=== PATIENT | male | born 1945 | race Caucasian/White ===

== ENCOUNTER → 2017-05-13 | Outpatient (CLI) | payer MEDICARE, OTHER ==
[~2017-05-13] MED LIST: ALEVE 220MG220 MG PO; APRESOLINE 25MG25 MG PO; ASPIRIN 32325 MG/TAB PO; ASPIRIN E.C. 8181 MG PO; CIPRO 500MG TA500 MG PO; COLACE 100100 MG/CAP PO; DESENEX21 TP; DITROPAN XL10 MG PO; DULCOLAX S10 MG/SUPP RC; EFFEXOR 75M75 MG/TAB PO; EFFEXOR XR75 MG PO; FERROUS SU325 MG/TAB PO; FLEET MINE1 BOT/133 RC; FOLIC ACID 40400 MCG PO; GLUCOPHAGE XR500 M1 PO; GLUCOPHAGE500 MG/TAB PO; GLUCOTROL 5M5 MG/TAB PO; GLUCOTROL10 MG PO; GLYBURIDE5 MG PO; HYZAAR 12.5 MG-1 TAB PO; HYZAAR 25 MG-101 TAB PO; HYZAAR 50-12.1 UDTAB PO; INSULIN N (N100 U/ML SQ; LEADER CLE17 GM/Dose PO; LIDODERM 5% PATC1 EA TP; LYRICA 100MG C100 M1 PO; LYRICA 150MG C150 MG PO; MASON NATURAL2000 IU PO; METOPROLOL25 MG PO; MICRONASE5 MG PO; MILK OF MA400 MG/5 M PO; MOBIC15 MG PO; NEURONTIN300 MG/CAP PO; NEURONTIN600 MG/TAB PO; NITROSTAT0.4 MG/TAB SL; NORCO 325 MG-51 TAB PO; NORCO 325 MG-7.1 TAB PO; NORVASC 10MG10 MG PO; NOVLOG SQ; NOVOLIN N100 U/ML SQ; ROXICODONE 55 MG/TAB PO; SENNA-LAX8.6 MG PO; SENOKOT8.6 MG PO; TYLENOL 325MG325 MG PO; TYLENOL 500MG500 MG PO; VICTOZA6 MG/ML SC; VITAMIN C500 MG PO; XARELTO10 MG PO; ZOCOR 10MG10 MG PO; ZOCOR20 MG PO; [UNRECOGNIZED DRUG - CODE] PO
== END ==
LOC: MHCPAIN 13:13
DX: G89.29 Other chronic pain (principal); M47.27 Other spondylosis with radiculopathy, lumbosacral region; M53.3 Sacrococcygeal disorders, not elsewhere classified; Z79.82 Long term (current) use of aspirin
CPT/HCPCS: G0463

== ENCOUNTER → 2017-06-12 | Outpatient (CLI) | payer MEDICARE, OTHER ==
[~2017-06-12] MED LIST changes: -APRESOLINE 25MG25 MG PO; -ASPIRIN E.C. 8181 MG PO; -DESENEX21 TP; -DITROPAN XL10 MG PO; -DULCOLAX S10 MG/SUPP RC; -EFFEXOR 75M75 MG/TAB PO; +EFFEXOR XR37.5 MG/CA PO; -FERROUS SU325 MG/TAB PO; -FLEET MINE1 BOT/133 RC; -FOLIC ACID 40400 MCG PO; -GLUCOPHAGE XR500 M1 PO; -GLUCOTROL 5M5 MG/TAB PO; -GLUCOTROL10 MG PO; -HYZAAR 12.5 MG-1 TAB PO; -HYZAAR 50-12.1 UDTAB PO; -INSULIN N (N100 U/ML SQ; -LEADER CLE17 GM/Dose PO; -LIDODERM 5% PATC1 EA TP; -LYRICA 150MG C150 MG PO; -MASON NATURAL2000 IU PO; -MOBIC15 MG PO; -NEURONTIN300 MG/CAP PO; -NEURONTIN600 MG/TAB PO; -NITROSTAT0.4 MG/TAB SL; -NORVASC 10MG10 MG PO; -NOVLOG SQ; -NOVOLIN N100 U/ML SQ; -SENNA-LAX8.6 MG PO; -TYLENOL 325MG325 MG PO; -VITAMIN C500 MG PO; -XARELTO10 MG PO; -[UNRECOGNIZED DRUG - CODE] PO
== END ==
LOC: MHCPAIN 07:45
DX: M47.27 Other spondylosis with radiculopathy, lumbosacral region (principal); M48.02 Spinal stenosis, cervical region
CPT/HCPCS: J1100; Q9967

== ENCOUNTER → 2017-06-24 | Outpatient (CLI) | payer MEDICARE, OTHER | LOC: MHCPAIN 09:18 | DX: G89.29 Other chronic pain (principal); M47.27 Other spondylosis with radiculopathy, lumbosacral region; M53.3 Sacrococcygeal disorders, not elsewhere classified; M25.552 Pain in left hip; Z79.82 Long term (current) use of aspirin | CPT/HCPCS: G0463 ==

== ENCOUNTER → 2017-06-25 | Outpatient (CLI) | payer MEDICARE, OTHER | LOC: COL.RAD 14:53 | DX: M16.12 Unilateral primary osteoarthritis, left hip (principal) ==

== ENCOUNTER 2017-10-15 15:15 | Outpatient (RCR) | payer MEDICARE, OTHER | END 2017-10-22 14:55 | disposition home or self-care (01) | LOC: WSPT 15:15 | DX: M54.42 Lumbago with sciatica, left side (principal) | CPT/HCPCS: G8978-GP; G8979-GP ==

== ENCOUNTER 2018-04-20 07:18 | Inpatient (IN) | payer MEDICARE, OTHER ==
[~2018-04-20] VITALS: Ht 180.3 cm; Wt 142.8 kg
[~2018-04-20 07:18] MED LIST changes: +EFFEXOR 75M75 MG/TAB PO; -EFFEXOR XR37.5 MG/CA PO
[2018-04-20] MEDS ORDERED: GLUCOPHAGE XR500 M1 PO (07:30)
[2018-04-20 08:00] LABS: COLLECTION METHOD CLEAN CATCH
[2018-04-20 08:03] LABS: HEMATOCRIT 42.4 % (42.0-52.0); HEMOGLOBIN 13.7 g/dl (13.5-18.0); MEAN CELL VOLUME 85 fl (80.0-100.0); MEAN CORPUSCULAR HEMOGLOBIN 28 pg (27.0-31.0); MEAN CORPUSCULAR HGB CONC 32 g/dl (33.0-37.0); PLATELET COUNT 154 K/mm3 (130-400); RED BLOOD COUNT 4.99 M/mm3 (4.20-5.60); REDCELL DISTRIBUTION WIDTH-CV 16.6 % (11.5-14.5)
[2018-04-20 08:08] LABS: PH 6 (5-8); SQUAMOUS EPITHELIAL 0-2 /hpf; URINE APPEARANCE Clear; URINE BACTERIA None Seen /hpf; URINE BILIRUBIN Negative (NEGATIVE); URINE BLOOD 3+ (NEGATIVE); URINE COLOR Yellow; URINE GLUCOSE Negative (NEGATIVE); URINE KETONE Negative (NEGATIVE); URINE LEUKOCYTE ESTERASE Negative (NEGATIVE); URINE NITRATE Negative (NEGATIVE); URINE PROTEIN(semi-quant) 2+ (NEGATIVE); URINE RBC 20-50 /hpf; URINE UROBILINOGEN Negative (NEGATIVE)
[2018-04-20] MEDS ORDERED: LYRICA 150MG C150 MG PO (08:12)
[2018-04-20] MEDS ORDERED: MOBIC15 MG PO (08:12)
[2018-04-20] MEDS ORDERED: HYZAAR 50-12.1 UDTAB PO (08:14)
[2018-04-20] MEDS ORDERED: NEURONTIN600 MG/TAB PO (08:15)
[2018-04-20] MEDS ORDERED: NORCO 325 MG-51 TAB PO (08:16)
[2018-04-20] MEDS ORDERED: NITROSTAT0.4 MG/TAB SL (08:17)
[2018-04-20] MEDS ORDERED: HYZAAR 12.5 MG-1 TAB PO (08:18)
[2018-04-20 08:20] LABS: PARTIAL THROMBOPLASTIN TIME 33.9 SECONDS (26.0-37.0)
[2018-04-20 08:21] LABS: ALBUMIN 3.6 gm/dL (3.5-5.0); BILIRUBIN,TOTAL 0.5 mg/dL (0.0-1.0); CALCIUM 8.8 mg/dL (8.4-10.2); CREATININE, serum 1.11 mg/dL (0.66-1.25); POTASSIUM 4.6 mmol/L (3.4-5.0); TOTAL PROTEIN 6.7 gm/dL (6.4-8.2)
[2018-04-20] MEDS ORDERED: GLUCOTROL10 MG PO (08:21)
[2018-04-20 08:26] LABS: BAND 6 % (0-10); EOSINOPHIL 3 % (0-4); LYMPHOCYTE 16 % (20.0-51.0); METAMYELOCYTE 1 % (0-0); NEUTROPHILS 61 % (42.0-75.2); PLATELET ESTIMATE NORMAL (NORMAL)
[2018-04-20 08:27] LABS: HYPOCHROMIA 1+
[2018-04-20] MEDS ORDERED: ASPIRIN E.C. 8181 MG PO (12:26)
[2018-04-20] MEDS ORDERED: DITROPAN XL10 MG PO (12:29)
[2018-04-20 12:47] VITALS: BP 175/75; PULSE 78; TEMP 98.1
[2018-04-20 15:34] VITALS: BP 166/54; PULSE 74; TEMP 97.9
[2018-04-20 19:53] VITALS: BP 145/67; PULSE 73; TEMP 97.6
[2018-04-20 23:49] VITALS: BP 176/69; PULSE 67; TEMP 97.6
[2018-04-21 03:03] VITALS: BP 185/74; PULSE 66; TEMP 97.6
[2018-04-21 08:13] VITALS: BP 216/90; PULSE 76; TEMP 98.3
[2018-04-21 09:26] VITALS: BP 182/62; PULSE 68
[2018-04-21 11:18] VITALS: BP 164/103; PULSE 70; TEMP 97.7
[2018-04-21] MEDS ORDERED: EFFEXOR 75M75 MG/TAB PO (11:45)
[2018-04-21 15:49] VITALS: BP 149/99; PULSE 74; TEMP 97.8
[2018-04-21 20:27] VITALS: BP 136/60; PULSE 69; TEMP 97.8
[2018-04-22 01:06] VITALS: BP 120/49; PULSE 65; TEMP 97.4
[2018-04-22 07:59] VITALS: BP 175/56; PULSE 77; TEMP 97.9
[2018-04-22 11:08] VITALS: BP 160/58; PULSE 84; TEMP 97.8
[2018-04-22 15:22] VITALS: BP 136/58; PULSE 69; TEMP 98.1
[2018-04-22 17:51] LABS: BASO % 0.7 % (0.0-2.0); EOS # 0.2 (0.0-0.7); GRAN # 3.5 (1.4-6.5); GRAN % 61.6 % (42.2-75.2); HEMATOCRIT 42.8 % (42.0-52.0); HEMOGLOBIN 13.6 g/dl (13.5-18.0); LYMPH # 0.9 (1.2-3.4); LYMPH % 15.8 % (20.0-51.0); MEAN CELL VOLUME 86 fl (80.0-100.0); MEAN CORPUSCULAR HEMOGLOBIN 27 pg (27.0-31.0); MEAN CORPUSCULAR HGB CONC 32 g/dl (33.0-37.0); MEAN PLATELET VOLUME 9.7 fl (7.4-10.4); MONO # 0.9 (0.1-0.6); PLATELET COUNT 165 K/mm3 (130-400); RED BLOOD COUNT 4.99 M/mm3 (4.20-5.60); REDCELL DISTRIBUTION WIDTH-CV 16.5 % (11.5-14.5)
[2018-04-22 18:07] LABS: CALCIUM 8.2 mg/dL (8.4-10.2); CREATININE, serum 1.64 mg/dL (0.66-1.25); MAGNESIUM 2.3 mg/dL (1.6-2.3); POTASSIUM 4.4 mmol/L (3.4-5.0)
[2018-04-22 20:17] VITALS: BP 105/44; PULSE 75; TEMP 98.7
[2018-04-23] VITALS (8 sets, daily range): BP systolic 98–186; BP diastolic 43–86; PULSE 61–82; TEMP 97.5–98.4
[2018-04-23 06:29] LABS: BASO % 0.3 % (0.0-2.0); EOS % 0.3 % (0-4.0); GRAN # 5.2 (1.4-6.5); GRAN % 81.8 % (42.2-75.2); HEMATOCRIT 40.8 % (42.0-52.0); LYMPH # 0.5 (1.2-3.4); LYMPH % 8.2 % (20.0-51.0); MEAN CELL VOLUME 85 fl (80.0-100.0); MEAN CORPUSCULAR HEMOGLOBIN 27 pg (27.0-31.0); MEAN CORPUSCULAR HGB CONC 32 g/dl (33.0-37.0); MEAN PLATELET VOLUME 9.8 fl (7.4-10.4); MONO # 0.5 (0.1-0.6); PLATELET COUNT 157 K/mm3 (130-400); RED BLOOD COUNT 4.82 M/mm3 (4.20-5.60); REDCELL DISTRIBUTION WIDTH-CV 15.9 % (11.5-14.5)
[2018-04-23 06:46] LABS: CALCIUM 8.2 mg/dL (8.4-10.2); CREATININE, serum 1.63 mg/dL (0.66-1.25); POTASSIUM 4.8 mmol/L (3.4-5.0)
[2018-04-24 03:32] VITALS: BP 103/88; PULSE 62; TEMP 98.1
[2018-04-24 06:27] LABS: HEMATOCRIT 41.7 % (42.0-52.0); HEMOGLOBIN 13.4 g/dl (13.5-18.0); MEAN CELL VOLUME 85 fl (80.0-100.0); MEAN CORPUSCULAR HEMOGLOBIN 27 pg (27.0-31.0); MEAN CORPUSCULAR HGB CONC 32 g/dl (33.0-37.0); MEAN PLATELET VOLUME 9.7 fl (7.4-10.4); PLATELET COUNT 160 K/mm3 (130-400); RED BLOOD COUNT 4.91 M/mm3 (4.20-5.60)
[2018-04-24 06:42] LABS: CALCIUM 8.2 mg/dL (8.4-10.2); CREATININE, serum 1.35 mg/dL (0.66-1.25); POTASSIUM 4.8 mmol/L (3.4-5.0)
[2018-04-24 06:51] LABS: BAND 14 % (0-10); LYMPHOCYTE 11 % (20.0-51.0); NEUTROPHILS 67 % (42.0-75.2)
[2018-04-24 06:52] LABS: PLATELET ESTIMATE NORMAL (NORMAL)
[2018-04-24 08:08] VITALS: BP 197/74; PULSE 68; TEMP 97.7
[2018-04-24 09:03] VITALS: BP 164/57
[2018-04-24 11:37] VITALS: BP 180/64; PULSE 71; TEMP 98.8
[2018-04-24 15:49] VITALS: BP 167/72; PULSE 68; TEMP 98
[2018-04-24 21:34] VITALS: BP 158/60; PULSE 73; TEMP 97.4
[2018-04-25 01:03] VITALS: BP 147/44; PULSE 63; TEMP 97.7
[2018-04-25 07:20] LABS: HEMATOCRIT 41.8 % (42.0-52.0); HEMOGLOBIN 13.4 g/dl (13.5-18.0); MEAN CELL VOLUME 86 fl (80.0-100.0); MEAN CORPUSCULAR HEMOGLOBIN 28 pg (27.0-31.0); MEAN CORPUSCULAR HGB CONC 32 g/dl (33.0-37.0); MEAN PLATELET VOLUME 9.5 fl (7.4-10.4); PLATELET COUNT 135 K/mm3 (130-400); RED BLOOD COUNT 4.88 M/mm3 (4.20-5.60); REDCELL DISTRIBUTION WIDTH-CV 16.2 % (11.5-14.5)
[2018-04-25 07:32] LABS: CALCIUM 8.2 mg/dL (8.4-10.2); CREATININE, serum 1.18 mg/dL (0.66-1.25); POTASSIUM 4.5 mmol/L (3.4-5.0)
[2018-04-25 08:37] VITALS: BP 115/41; PULSE 65; TEMP 98.4
[2018-04-25 08:41] VITALS: BP 179/51; PULSE 68; TEMP 95.5
[2018-04-25 09:34] LABS: ANISOCYTOSIS 1+; BAND 4 % (0-10); BASOPHIL 1 % (0-2); EOSINOPHIL 7 % (0-4); LYMPHOCYTE 12 % (20.0-51.0); NEUTROPHILS 66 % (42.0-75.2); PLATELET ESTIMATE NORMAL (NORMAL)
[2018-04-25 11:31] VITALS: BP 177/63; PULSE 78; TEMP 98
[2018-04-25 17:07] VITALS: BP 152/48; PULSE 70; TEMP 97.7
[2018-04-25 21:30] VITALS: BP 165/83; PULSE 71; TEMP 97.9
[2018-04-26 01:31] VITALS: BP 135/33; PULSE 67; TEMP 97.8
[2018-04-26 03:44] VITALS: BP 151/60; PULSE 68; TEMP 97.6
[2018-04-26 07:18] VITALS: BP 183/52; PULSE 77; TEMP 97.7
[2018-04-26] MEDS ORDERED: APRESOLINE 25MG25 MG PO (09:00)
[2018-04-26] MEDS ORDERED: NORVASC 10MG10 MG PO (09:01)
[2018-04-26] MEDS ORDERED: NORCO 325 MG-51 TAB PO (09:01)
[2018-04-26] MEDS ORDERED: LYRICA 150MG C150 MG PO (09:02)
[2018-04-26] MEDS ORDERED: NEURONTIN600 MG/TAB PO (09:02)
[2018-04-26] MEDS ORDERED: SENNA-LAX8.6 MG PO (09:03)
[2018-04-26] MEDS ORDERED: COLACE 100100 MG/CAP PO (09:03)
[2018-04-26] MEDS ORDERED: LEADER CLE17 GM/Dose PO (09:05)
[2018-04-26] MEDS ORDERED: LIDODERM 5% PATC1 EA TP (09:05)
[2018-04-26 11:20] VITALS: BP 183/52; PULSE 77; TEMP 97.7
[2018-04-26 12:31] VITALS: BP 117/88; PULSE 98; TEMP 98
== END 2018-04-26 13:25 | DRG 552 ==
LOC: COL.ER 07:18 → MEDICAL 09:52
PROVIDERS: Emergency Medicine; Physician Assistant
DX: M51.26 Other intervertebral disc displacement, lumbar region (principal); N17.9 Acute kidney failure, unspecified; Z68.41 Body mass index [BMI] 40.0-44.9, adult; M25.551 Pain in right hip; W18.30XA Fall on same level, unspecified, initial encounter; I12.9 Hypertensive chronic kidney disease with stage 1 through stage 4 chronic kidney disease, or unspecified chronic kidney disease; E11.22 Type 2 diabetes mellitus with diabetic chronic kidney disease; N18.3 Chronic kidney disease, stage 3 (moderate); I25.10 Atherosclerotic heart disease of native coronary artery without angina pectoris; E11.42 Type 2 diabetes mellitus with diabetic polyneuropathy; E66.01 Morbid (severe) obesity due to excess calories; Z95.1 Presence of aortocoronary bypass graft; Z95.5 Presence of coronary angioplasty implant and graft; Z85.46 Personal history of malignant neoplasm of prostate; G25.3 Myoclonus
CPT/HCPCS: 99232-AI; 99239; G0378; G8978-GP; G8979-GP; G8987-GO; G8988-GO; J0360; J1650; J1815; J2270; J3010; J7030; Q9967

== ENCOUNTER 2018-04-21 16:25 | Inpatient (IN) | payer MEDICARE, OTHER ==
[~2018-04-21] VITALS: Ht 180.3 cm; Wt 149.9 kg
[~2018-04-21 16:25] MED LIST changes: +ASPIRIN E.C. 8181 MG PO; +DITROPAN XL10 MG PO; +GLUCOPHAGE XR500 M1 PO; +GLUCOTROL10 MG PO; +HYZAAR 12.5 MG-1 TAB PO; +HYZAAR 50-12.1 UDTAB PO; +LYRICA 150MG C150 MG PO; +MOBIC15 MG PO; +NEURONTIN600 MG/TAB PO; +NITROSTAT0.4 MG/TAB SL
[2018-04-26] MEDS ORDERED: APRESOLINE 25MG25 MG PO (09:00)
[2018-04-26] MEDS ORDERED: NORCO 325 MG-51 TAB PO (09:01)
[2018-04-26] MEDS ORDERED: NORVASC 10MG10 MG PO (09:01)
[2018-04-26] MEDS ORDERED: LYRICA 150MG C150 MG PO (09:02)
[2018-04-26] MEDS ORDERED: NEURONTIN600 MG/TAB PO (09:02)
[2018-04-26] MEDS ORDERED: SENNA-LAX8.6 MG PO (09:03)
[2018-04-26] MEDS ORDERED: COLACE 100100 MG/CAP PO (09:03)
[2018-04-26] MEDS ORDERED: LEADER CLE17 GM/Dose PO (09:05)
[2018-04-26] MEDS ORDERED: LIDODERM 5% PATC1 EA TP (09:05)
[2018-06-23] VITALS (11 sets, daily range): BP systolic 98–162; BP diastolic 45–73; PULSE 61–80; TEMP 97.5–98.5
[2018-06-23] MEDS ORDERED: NEURONTIN600 MG/TAB PO (15:07)
[2018-06-23] MEDS ORDERED: MASON NATURAL2000 IU PO (15:09)
[2018-06-23] MEDS ORDERED: INSULIN N (N100 U/ML SQ (15:09)
[2018-06-23] MEDS ORDERED: [UNRECOGNIZED DRUG - CODE] PO (15:10)
[2018-06-23] MEDS ORDERED: VITAMIN C500 MG PO (15:11)
[2018-06-23] MEDS ORDERED: FERROUS SU325 MG/TAB PO (15:11)
[2018-06-23] MEDS ORDERED: FOLIC ACID 40400 MCG PO (15:11)
[2018-06-24] VITALS (9 sets, daily range): BP systolic 119–177; BP diastolic 45–137; PULSE 80–115; TEMP 96–98.6
[2018-06-24 07:28] LABS: HEMATOCRIT 41.8 % (42.0-52.0); HEMOGLOBIN 12.6 g/dl (13.5-18.0)
[2018-06-24 07:40] LABS: CALCIUM 7.7 mg/dL (8.4-10.2); CREATININE, serum 1.53 mg/dL (0.66-1.25); POTASSIUM 4.8 mmol/L (3.4-5.0)
[2018-06-25] VITALS (11 sets, daily range): BP systolic 139–210; BP diastolic 54–108; PULSE 94–123; TEMP 98–99.2
[2018-06-25 01:46] LABS: CREATININE, serum 1.5 mg/dL (0.66-1.25); FRACTIONAL EXCRETION OF NA+ 1.1 %
[2018-06-25 06:19] LABS: BASO # 0.1 (0.0-0.2); BASO % 0.6 % (0.0-2.0); EOS # 0.1 (0.0-0.7); EOS % 0.7 % (0-4.0); GRAN # 6.8 (1.4-6.5); GRAN % 77.8 % (42.2-75.2); HEMOGLOBIN 11.3 g/dl (13.5-18.0); LYMPH # 0.5 (1.2-3.4); MEAN CELL VOLUME 89 fl (80.0-100.0); MEAN CORPUSCULAR HEMOGLOBIN 28 pg (27.0-31.0); MEAN CORPUSCULAR HGB CONC 31 g/dl (33.0-37.0); MEAN PLATELET VOLUME 9.6 fl (7.4-10.4); MONO # 1.2 (0.1-0.6); MONO % 13.8 % (1.7-9.3); PLATELET COUNT 132 K/mm3 (130-400); RED BLOOD COUNT 4.07 M/mm3 (4.20-5.60); REDCELL DISTRIBUTION WIDTH-CV 15.7 % (11.5-14.5)
[2018-06-25 06:25] LABS: CALCIUM 7.7 mg/dL (8.4-10.2); CREATININE, serum 1.33 mg/dL (0.66-1.25); POTASSIUM 4.2 mmol/L (3.4-5.0)
[2018-06-25 06:27] LABS: HEMATOCRIT 36.2 % (42.0-52.0)
[2018-06-25 14:22] LABS: COLLECTION METHOD CLEAN CATCH
[2018-06-25 14:47] LABS: MUCOUS Present /lpf; PH 5 (5-8); SQUAMOUS EPITHELIAL None Seen /hpf; URINE APPEARANCE Clear; URINE BACTERIA None Seen /hpf; URINE BILIRUBIN Negative (NEGATIVE); URINE BLOOD 3+ (NEGATIVE); URINE COLOR Yellow; URINE GLUCOSE 1+ (NEGATIVE); URINE KETONE Negative (NEGATIVE); URINE LEUKOCYTE ESTERASE Negative (NEGATIVE); URINE NITRATE Negative (NEGATIVE); URINE PROTEIN(semi-quant) 1+ (NEGATIVE); URINE UROBILINOGEN Negative (NEGATIVE); URINE WBC 0-2 /hpf
[2018-06-26] VITALS: BP 156/72; PULSE 121; TEMP 98.3
[2018-06-26 04:00] VITALS: BP 178/76; PULSE 97; TEMP 99.4
[2018-06-26 05:44] LABS: BASO % 0.4 % (0.0-2.0); EOS % 0.5 % (0-4.0); GRAN # 6.5 (1.4-6.5); GRAN % 80.5 % (42.2-75.2); HEMOGLOBIN 10.3 g/dl (13.5-18.0); LYMPH # 0.6 (1.2-3.4); LYMPH % 7.2 % (20.0-51.0); MEAN CELL VOLUME 88 fl (80.0-100.0); MEAN CORPUSCULAR HEMOGLOBIN 28 pg (27.0-31.0); MEAN CORPUSCULAR HGB CONC 31 g/dl (33.0-37.0); MEAN PLATELET VOLUME 10.1 fl (7.4-10.4); MONO # 0.8 (0.1-0.6); MONO % 10.4 % (1.7-9.3); PLATELET COUNT 135 K/mm3 (130-400); RED BLOOD COUNT 3.72 M/mm3 (4.20-5.60); REDCELL DISTRIBUTION WIDTH-CV 15.4 % (11.5-14.5)
[2018-06-26 05:45] LABS: HEMATOCRIT 32.8 % (42.0-52.0)
[2018-06-26 05:56] LABS: CALCIUM 7.3 mg/dL (8.4-10.2); CREATININE, serum 1.21 mg/dL (0.66-1.25); POTASSIUM 4.4 mmol/L (3.4-5.0)
[2018-06-26 08:00] VITALS: BP 157/80; PULSE 80; TEMP 97.5
[2018-06-26 12:00] VITALS: BP 150/65; PULSE 90; TEMP 98
[2018-06-26 15:47] VITALS: BP 118/56; PULSE 71; TEMP 98.1
[2018-06-26 19:57] VITALS: BP 165/52; PULSE 88; TEMP 99.6
[2018-06-27 00:23] VITALS: BP 160/60; PULSE 84; TEMP 99.2
[2018-06-27 03:46] VITALS: BP 149/55; PULSE 77; TEMP 98.2
[2018-06-27 07:33] VITALS: BP 150/59; PULSE 76; TEMP 98.7
[2018-06-27 08:02] LABS: BASO % 0.4 % (0.0-2.0); EOS # 0.3 (0.0-0.7); EOS % 3.5 % (0-4.0); GRAN % 75.1 % (42.2-75.2); HEMOGLOBIN 10.2 g/dl (13.5-18.0); LYMPH # 0.7 (1.2-3.4); LYMPH % 8.3 % (20.0-51.0); MEAN CELL VOLUME 86 fl (80.0-100.0); MEAN CORPUSCULAR HEMOGLOBIN 28 pg (27.0-31.0); MEAN CORPUSCULAR HGB CONC 32 g/dl (33.0-37.0); MEAN PLATELET VOLUME 10.3 fl (7.4-10.4); MONO # 0.9 (0.1-0.6); MONO % 11.4 % (1.7-9.3); PLATELET COUNT 147 K/mm3 (130-400); RED BLOOD COUNT 3.66 M/mm3 (4.20-5.60); REDCELL DISTRIBUTION WIDTH-CV 15.3 % (11.5-14.5)
[2018-06-27 08:16] LABS: CALCIUM 7.5 mg/dL (8.4-10.2); CREATININE, serum 1.25 mg/dL (0.66-1.25); HEMATOCRIT 31.5 % (42.0-52.0); POTASSIUM 4.1 mmol/L (3.4-5.0)
[2018-06-27 12:25] VITALS: BP 132/39; PULSE 67; TEMP 97.5
[2018-06-27 17:23] VITALS: BP 135/51; PULSE 67; TEMP 97.5
[2018-06-27 19:10] VITALS: BP 107/69; BP 157/56; PULSE 75; TEMP 98.5
[2018-06-28 00:06] VITALS: BP 137/49; PULSE 71; TEMP 98.4
[2018-06-28 04:53] VITALS: BP 127/54; PULSE 68; TEMP 98.5
[2018-06-28 06:07] LABS: MEAN CELL VOLUME 87 fl (80.0-100.0); MEAN CORPUSCULAR HGB CONC 31 g/dl (33.0-37.0); MEAN PLATELET VOLUME 10.2 fl (7.4-10.4); PLATELET COUNT 155 K/mm3 (130-400); RED BLOOD COUNT 3.64 M/mm3 (4.20-5.60)
[2018-06-28 06:12] LABS: HEMATOCRIT 31.7 % (42.0-52.0); HEMOGLOBIN 9.9 g/dl (13.5-18.0); MEAN CORPUSCULAR HEMOGLOBIN 27 pg (27.0-31.0)
[2018-06-28 06:18] LABS: CALCIUM 7.8 mg/dL (8.4-10.2); CREATININE, serum 1.14 mg/dL (0.66-1.25); POTASSIUM 3.8 mmol/L (3.4-5.0)
[2018-06-28 06:33] LABS: BAND 16 % (0-10); EOSINOPHIL 2 % (0-4); LYMPHOCYTE 8 % (20.0-51.0); METAMYELOCYTE 2 % (0-0); NEUTROPHILS 67 % (42.0-75.2)
[2018-06-28 06:34] LABS: PLATELET ESTIMATE NORMAL (NORMAL)
[2018-06-28 08:43] VITALS: BP 150/52; PULSE 70; TEMP 98.5
[2018-06-28 12:57] VITALS: BP 140/49; PULSE 66; TEMP 98.4
[2018-06-28 16:31] VITALS: BP 128/49; PULSE 63; TEMP 98.1
[2018-06-28 20:59] VITALS: BP 154/65; PULSE 100; TEMP 98.4
[2018-06-29 04:35] VITALS: BP 153/56; PULSE 69; TEMP 96.9
[2018-06-29 08:06] VITALS: BP 165/62; PULSE 66; TEMP 97.7
[2018-06-29 12:14] VITALS: BP 137/57; PULSE 70; TEMP 98.3
[2018-06-29] MEDS ORDERED: LYRICA 150MG C150 MG PO (15:06)
[2018-06-29] MEDS ORDERED: NEURONTIN300 MG/CAP PO (15:06)
[2018-06-29 15:09] VITALS: BP 137/57; PULSE 70; TEMP 98.3
[2018-06-29] MEDS ORDERED: NORCO 325 MG-7.1 TAB PO (17:50)
[2018-06-29] MEDS ORDERED: ROXICODONE 55 MG/TAB PO (17:51)
== END 2018-06-29 16:00 | DRG 470 ==
LOC: SURG 06-23 08:52 → JCC 06-23 08:52 → SURG 06-24 23:03 → ICU 06-25 19:19 → SURG 06-26 15:45
PROVIDERS: Hospitalist; Orthopaedic Surgery; Physician Assistant
PROC: 0SRC0J9 Replacement of Right Knee Joint with Synthetic Substitute, Cemented, Open Approach (ICD-10-PCS; principal; 2018-06-23 13:00)
PROC: 0QS836Z Reposition Right Femoral Shaft with Intramedullary Internal Fixation Device, Percutaneous Approach (ICD-10-PCS; 2018-06-26)
DX: M17.11 Unilateral primary osteoarthritis, right knee (principal); S72.341A Displaced spiral fracture of shaft of right femur, initial encounter for closed fracture; Z68.42 Body mass index [BMI] 45.0-49.9, adult; N17.9 Acute kidney failure, unspecified; I97.191 Other postprocedural cardiac functional disturbances following other surgery; I47.1 Supraventricular tachycardia; E66.01 Morbid (severe) obesity due to excess calories; E11.42 Type 2 diabetes mellitus with diabetic polyneuropathy; Z79.4 Long term (current) use of insulin; Z85.46 Personal history of malignant neoplasm of prostate; I10 Essential (primary) hypertension; Z95.1 Presence of aortocoronary bypass graft; I25.10 Atherosclerotic heart disease of native coronary artery without angina pectoris; E78.5 Hyperlipidemia, unspecified; M48.00 Spinal stenosis, site unspecified; Z95.5 Presence of coronary angioplasty implant and graft; R27.8 Other lack of coordination; I49.3 Ventricular premature depolarization; D50.0 Iron deficiency anemia secondary to blood loss (chronic); W06.XXXA Fall from bed, initial encounter; G25.1 Drug-induced tremor; T42.6X5A Adverse effect of other antiepileptic and sedative-hypnotic drugs, initial encounter
CPT/HCPCS: 99222; 99231-AI; 99232-AI; A4314; A4315; A9284; C1713; C1776; J0171; J0690; J1170; J1815; J2250; J2270; J2370; J2405; J2704; J3010; J3370; J7030

== ENCOUNTER → 2018-06-12 | Outpatient (CLI) | payer MEDICARE, OTHER ==
[~2018-06-12] MED LIST changes: +APRESOLINE 25MG25 MG PO; +LEADER CLE17 GM/Dose PO; +LIDODERM 5% PATC1 EA TP; +NORVASC 10MG10 MG PO; +SENNA-LAX8.6 MG PO
[2018-06-12 12:11] LABS: HIV 1/2 Antibodies Non-Reactive; HIV-1p24 Antigen Non-Reactive
== END ==
LOC: COL.LAB 10:42
PROVIDERS: Orthopaedic Surgery
DX: Z01.812 Encounter for preprocedural laboratory examination (principal); M17.11 Unilateral primary osteoarthritis, right knee

== ENCOUNTER 2018-06-29 12:44 | Inpatient (IN) | payer MEDICARE, OTHER ==
[~2018-06-29] VITALS: Ht 177.8 cm; Wt 145.3 kg
[~2018-06-29 12:44] MED LIST changes: +FERROUS SU325 MG/TAB PO; +FOLIC ACID 40400 MCG PO; +INSULIN N (N100 U/ML SQ; +MASON NATURAL2000 IU PO; +VITAMIN C500 MG PO; +[UNRECOGNIZED DRUG - CODE] PO
[2018-06-29] MEDS ORDERED: LYRICA 150MG C150 MG PO (15:06)
[2018-06-29] MEDS ORDERED: NEURONTIN300 MG/CAP PO (15:06)
[2018-06-29] MEDS ORDERED: NORCO 325 MG-7.1 TAB PO (17:50)
[2018-06-29] MEDS ORDERED: ROXICODONE 55 MG/TAB PO (17:51)
[2018-06-29 19:11] VITALS: BP 160/53; PULSE 72; TEMP 98.2
[2018-06-30 06:26] VITALS: BP 159/57; PULSE 79; TEMP 98.1
[2018-06-30 17:55] VITALS: BP 131/46; PULSE 85; TEMP 97.6
[2018-07-01 03:57] VITALS: BP 142/51; PULSE 86; TEMP 97.5
[2018-07-01 17:54] VITALS: BP 143/45; PULSE 79; TEMP 97.5
[2018-07-02 04:36] VITALS: BP 154/54; PULSE 87; TEMP 97.9
[2018-07-02 18:01] VITALS: BP 156/40; PULSE 87; TEMP 98
[2018-07-03 04:00] VITALS: BP 162/55; PULSE 80; TEMP 98.7
[2018-07-03 06:18] LABS: HEMOGLOBIN 10.7 g/dl (13.5-18.0); MEAN CELL VOLUME 88 fl (80.0-100.0); MEAN CORPUSCULAR HEMOGLOBIN 27 pg (27.0-31.0); MEAN CORPUSCULAR HGB CONC 31 g/dl (33.0-37.0); MEAN PLATELET VOLUME 9.6 fl (7.4-10.4); PLATELET COUNT 332 K/mm3 (130-400); RED BLOOD COUNT 3.92 M/mm3 (4.20-5.60); REDCELL DISTRIBUTION WIDTH-CV 15.6 % (11.5-14.5)
[2018-07-03 06:19] LABS: HEMATOCRIT 34.5 % (42.0-52.0)
[2018-07-03 06:44] LABS: CALCIUM 8.9 mg/dL (8.4-10.2); CREATININE, serum 1.19 mg/dL (0.66-1.25); MAGNESIUM 2.2 mg/dL (1.6-2.3); POTASSIUM 4.4 mmol/L (3.4-5.0)
[2018-07-03 07:14] LABS: BASOPHIL 4 % (0-2); EOSINOPHIL 2 % (0-4); LYMPHOCYTE 14 % (20.0-51.0); MYELOCYTE 1 % (0-0); NEUTROPHILS 76 % (42.0-75.2); PLATELET ESTIMATE NORMAL (NORMAL)
[2018-07-03 07:15] LABS: ANISOCYTOSIS 1+; OVALOCYTES 1+; STOMATOCYTE 1+
[2018-07-03 16:50] LABS: COLLECTION METHOD CLEAN CATCH
[2018-07-03 17:03] LABS: MUCOUS Present /lpf; PH 8 (5-8); SQUAMOUS EPITHELIAL None Seen /hpf; URINE APPEARANCE Hazy; URINE BACTERIA Rare /hpf; URINE BILIRUBIN Negative (NEGATIVE); URINE BLOOD Negative (NEGATIVE); URINE COLOR Yellow; URINE GLUCOSE Negative (NEGATIVE); URINE KETONE Negative (NEGATIVE); URINE LEUKOCYTE ESTERASE 3+ (NEGATIVE); URINE NITRATE Positive (NEGATIVE); URINE PROTEIN(semi-quant) 1+ (NEGATIVE); URINE RBC 0-2 /hpf; URINE TRIPLE PHOSPHATE CRYSTAL Present /hpf; URINE UROBILINOGEN Negative (NEGATIVE)
[2018-07-03 17:59] VITALS: BP 167/54; PULSE 85; TEMP 98
[2018-07-04 04:27] VITALS: BP 134/50; PULSE 77; TEMP 97.2
[2018-07-04 16:32] VITALS: BP 155/57; PULSE 101; TEMP 97.6
[2018-07-05 05:16] VITALS: BP 141/56; PULSE 103; TEMP 97.5
[2018-07-05 16:17] VITALS: BP 153/61; PULSE 92; TEMP 98
[2018-07-06 06:06] VITALS: BP 155/43; PULSE 80; TEMP 97.8
[2018-07-06 18:49] VITALS: BP 161/60; PULSE 101; TEMP 98
[2018-07-07 05:50] VITALS: BP 172/56; PULSE 85; TEMP 97.8
[2018-07-07 18:13] VITALS: BP 139/50; PULSE 87; TEMP 97.8
[2018-07-08 04:03] VITALS: BP 158/63; PULSE 94; TEMP 97.5
[2018-07-08 18:02] VITALS: BP 130/48; PULSE 91; TEMP 97.5
[2018-07-09 06:11] VITALS: BP 166/59; PULSE 84; TEMP 98.1
[2018-07-09 16:10] VITALS: BP 123/51; PULSE 81; TEMP 98
[2018-07-09 21:17] VITALS: BP 153/66; PULSE 92
[2018-07-10 03:51] VITALS: BP 117/47; PULSE 88; TEMP 98.2
[2018-07-10 16:35] VITALS: BP 163/51; PULSE 97; TEMP 98.2
[2018-07-11 05:23] VITALS: BP 144/67; PULSE 94; TEMP 97.6
[2018-07-11 13:26] LABS: COLLECTION METHOD CLEAN CATCH
[2018-07-11 13:37] LABS: MUCOUS Present /lpf; PH 5 (5-8); SQUAMOUS EPITHELIAL None Seen /hpf; URINE APPEARANCE Clear; URINE BACTERIA None Seen /hpf; URINE BILIRUBIN Negative (NEGATIVE); URINE BLOOD 2+ (NEGATIVE); URINE COLOR Yellow; URINE GLUCOSE Negative (NEGATIVE); URINE KETONE Negative (NEGATIVE); URINE LEUKOCYTE ESTERASE Negative (NEGATIVE); URINE NITRATE Negative (NEGATIVE); URINE PROTEIN(semi-quant) Negative (NEGATIVE); URINE RBC 20-50 /hpf
[2018-07-11 16:11] VITALS: BP 147/47; PULSE 82; TEMP 98.2
[2018-07-12 04:14] VITALS: BP 150/55; PULSE 73; TEMP 97.6
[2018-07-12 17:02] VITALS: BP 149/56; PULSE 82; TEMP 97.7
[2018-07-13 06:31] VITALS: BP 177/66; PULSE 83; TEMP 97.7
[2018-07-13 17:47] VITALS: BP 159/61; PULSE 90; TEMP 97.8
[2018-07-14 06:24] VITALS: BP 169/63; PULSE 75; TEMP 97.4
[2018-07-14] MEDS ORDERED: XARELTO10 MG PO (08:36)
[2018-07-14] MEDS ORDERED: TYLENOL 325MG325 MG PO (08:37)
[2018-07-14] MEDS ORDERED: NEURONTIN300 MG/CAP PO (08:37)
[2018-07-14] MEDS ORDERED: DULCOLAX S10 MG/SUPP RC (08:38)
[2018-07-14] MEDS ORDERED: FLEET MINE1 BOT/133 RC (08:38)
[2018-07-14] MEDS ORDERED: NOVOLIN N100 U/ML SQ (08:41)
[2018-07-14] MEDS ORDERED: NOVLOG SQ (08:41)
[2018-07-14] MEDS ORDERED: DESENEX21 TP (08:42)
[2018-07-14] MEDS ORDERED: GLUCOTROL 5M5 MG/TAB PO (08:42)
[2018-07-14] MEDS ORDERED: NORCO 325 MG-7.1 TAB PO (08:43)
== END 2018-07-14 11:50 | DRG 560 ==
PROVIDERS: Internal Medicine; Student in an Organized Health Care Education/Training Program
DX: S72.301D Unspecified fracture of shaft of right femur, subsequent encounter for closed fracture with routine healing (principal); Z68.42 Body mass index [BMI] 45.0-49.9, adult; G93.40 Encephalopathy, unspecified; N17.9 Acute kidney failure, unspecified; N39.0 Urinary tract infection, site not specified; Z96.651 Presence of right artificial knee joint; E11.42 Type 2 diabetes mellitus with diabetic polyneuropathy; Z47.1 Aftercare following joint replacement surgery; W18.30XD Fall on same level, unspecified, subsequent encounter; I10 Essential (primary) hypertension; Z79.4 Long term (current) use of insulin; I25.10 Atherosclerotic heart disease of native coronary artery without angina pectoris; Z95.1 Presence of aortocoronary bypass graft; Z95.5 Presence of coronary angioplasty implant and graft; Z85.46 Personal history of malignant neoplasm of prostate; E78.5 Hyperlipidemia, unspecified; E66.01 Morbid (severe) obesity due to excess calories; G25.1 Drug-induced tremor; T42.6X5D Adverse effect of other antiepileptic and sedative-hypnotic drugs, subsequent encounter; D50.0 Iron deficiency anemia secondary to blood loss (chronic); I49.3 Ventricular premature depolarization; B96.4 Proteus (mirabilis) (morganii) as the cause of diseases classified elsewhere
CPT/HCPCS: 99222-AI; 99232-AI; 99239; J1815

== ENCOUNTER → 2018-07-20 | Outpatient (CLI) | payer MEDICARE, OTHER ==
[~2018-07-20] MED LIST changes: +DESENEX21 TP; +DULCOLAX S10 MG/SUPP RC; +FLEET MINE1 BOT/133 RC; +GLUCOTROL 5M5 MG/TAB PO; +NEURONTIN300 MG/CAP PO; +NOVLOG SQ; +NOVOLIN N100 U/ML SQ; +TYLENOL 325MG325 MG PO; +XARELTO10 MG PO
== END ==
LOC: COL.RAD 10:30
DX: S93.401A Sprain of unspecified ligament of right ankle, initial encounter (principal); S82.431A Displaced oblique fracture of shaft of right fibula, initial encounter for closed fracture

== ENCOUNTER 2019-02-11 08:30 | Outpatient (RCR) | payer MEDICARE, OTHER | END 2019-02-15 | disposition home or self-care (01) | LOC: WSPT | DX: S72.8X1D Other fracture of right femur, subsequent encounter for closed fracture with routine healing (principal); W06.XXXD Fall from bed, subsequent encounter ==

== ENCOUNTER 2019-05-13 14:00 | Outpatient (RCR) | payer MEDICARE, OTHER | END 2019-05-14 16:50 | disposition home or self-care (01) | LOC: WSC 14:00 | DX: S72.91XA Unspecified fracture of right femur, initial encounter for closed fracture (principal); Z96.651 Presence of right artificial knee joint ==

== ENCOUNTER 2020-05-18 15:00 | Outpatient (RCR) | payer MEDICARE, OTHER | END 2020-05-29 | disposition home or self-care (01) | LOC: WSPT | DX: M48.062 Spinal stenosis, lumbar region with neurogenic claudication (principal); R63.8 Other symptoms and signs concerning food and fluid intake ==

== ENCOUNTER 2020-08-18 15:15 | Outpatient (RCR) | payer MEDICARE, OTHER | END 2020-08-28 | disposition home or self-care (01) | LOC: WSPT | DX: R53.1 Weakness (principal) ==

== ENCOUNTER 2021-08-15 11:03 | Inpatient (IN) | payer MEDICARE, OTHER ==
[~2021-08-15] VITALS: Ht 180.3 cm; Wt 156.4 kg
[~2021-08-15 11:03] MED LIST changes: +ACTOS30 MG PO; +ASPI325T6 PO; +BETIMOL 0.5% OPH5 ML OU; +COLESTID 1GM1 G PO; +COREG 6.256.25 MG/TA PO; +COZAAR100 MG PO; +DESYREL DIVIDO150 M1 PO; +SENEXON-S 50-81 EACH PO; +ZOCOR 20MG20 MG PO
[2021-08-15 16:55] VITALS: BP 134/58; PULSE 85; TEMP 97.7
--- NOTE | 2021-08-15 19:00 | NUR ---
RECEIVED CHANGE OF SHIFT REPORT FROM DAY SHIFT RN. CALL LIGHT WITHIN REACH, EXIT ALARM WHILE IN BED.
[2021-08-16 05:30] VITALS: BP 145/65; PULSE 78; TEMP 97.8
--- NOTE | 2021-08-16 07:12 | NUR ---
BRIEF CHANGE OF SHIFT REPORT WRITTEN FOR DAY SHIFT RN.
--- NOTE | 2021-08-16 08:30 | NUR ---
Patient is resting in bed. Call light and bedside table are within reach. Will continue to monitor patient throughout shift.
--- NOTE | 2021-08-16 10:58 | NUR ---
Patient's wound looks good with a small amount of drainage on aquacell. Pt has two small blisters on the outside of the CAM boot. Patient was asked not to try to pop blisters.
--- NOTE | 2021-08-16 14:47 | NUR ---
Distillery Worker met with patient to complete initial intake as he is new to [facility]. Patient lives in [place] with his daughter, Wendi (ph#[phone]) and sees VALERY Bernstein for primary care. Patient obtains medications from [facility] pharmacy with no difficulties. Patient uses a cane for ambulation normally but reports he also has two walkers at home. Patient advised he is normally independent with ADLS. Patient does not believe he has DPOA-HC but states Wendi takes care of everything. Patient is and Wendi is his only child. SW will continue to follow for discharge needs.
[2021-08-16 16:24] VITALS: BP 146/57; PULSE 97; TEMP 97.5
[2021-08-17 04:34] VITALS: BP 149/68; PULSE 74; TEMP 98.1
--- NOTE | 2021-08-17 06:39 | NUR ---
appears to be sleeping, bedside shift report received from FRANCISCO Neil
--- NOTE | 2021-08-17 07:15 | NUR ---
awakened and assited to sitting up in bed for breakfast,
--- NOTE | 2021-08-17 07:55 | NUR ---
full assessment completed, see interventions for further info, cam boot to right leg, has swelling and bruising behind right knee with approx 2cm blister to outer side of right knee area, aquacel dressing in place to outside lower right extremity with drainage, right foot with 1+edema, states he is sleepy this am and dozes easily, denies needs at this time
--- NOTE | 2021-08-17 08:41 | NUR ---
speech therapy in to work with patient
--- NOTE | 2021-08-17 14:34 | NUR ---
Research And Development Manager checked in with patient before the weekend. He states he has no questions or concerns at this time.
[2021-08-17 17:17] VITALS: BP 182/68; PULSE 94; TEMP 98.2
--- NOTE | 2021-08-17 20:46 | NUR ---
PT CONSTIPATED SEE MECHELLE FLANNERY GIVEN.
--- NOTE | 2021-08-18 03:25 | NUR ---
PT C/O RT LAT LOWE EXTREMITY SKIN BURNING. CHECKED SKIN. NOTED BLOOD BLISTER APPROX 1CM UNRUPTURED. NOTED SUPERIOR AQUACELL DRSG WITH DRAINAGE. CHANGED AT THIS TIME ALONG WITH MEPILEX OVER BLOOD BLISTER. CHECKED HEEL- INTACT. LOOSENED CAM BOOT FOR A SHORT WHILE. ENC RLE ELEVATION ABOVE HEART. PT AGREED. DECLINED PAIN MED. CALL LIGHT IN REACH.
[2021-08-18 05:35] VITALS: BP 133/52; PULSE 79; TEMP 98.5
--- NOTE | 2021-08-18 07:06 | NUR ---
REPORT RECIEVED FROM BLAKE SINGH, PT MEERA RESTING IN BED CALL LIGHT WITHIN REACH.
[2021-08-18 15:46] VITALS: BP 134/61; PULSE 95; TEMP 97.8
[2021-08-19 05:02] VITALS: BP 138/60; PULSE 69; TEMP 98
--- NOTE | 2021-08-19 06:50 | NUR ---
Report received from FRANCISCO Gaspar. Patient is sleeping in bed. Call light and bedside table are within reach. Will continue to monitor patient throughout shift.
--- NOTE | 2021-08-19 14:17 | NUR ---
Patient c/o discomfort on heel of left foot. Patient stated he feels like something in on his heel. This nurse opened up CAM boot to see what patient was talking about and placed a heel protector is boot and told patient to let me know if this made his heel feel better. Will continue to monitor patient throughout shift.
[2021-08-19 16:30] VITALS: BP 118/61; PULSE 92; TEMP 97.6
[2021-08-20 05:06] VITALS: BP 139/45; PULSE 66; TEMP 97.2
--- NOTE | 2021-08-20 10:24 | NUR ---
PT UP WITH THERAPY. EATING AND DRINKING NO N/V. FRACTURE BLISTER TO RIGHT LATERAL LEG.
--- NOTE | 2021-08-20 15:03 | NUR ---
Circuit Tester followed up with patient after the weekend. Patient advised things went fine over the weekend, although he is concerned about his transition home. Patient is particularly worried about the bathroom setup. SW contacted patient's daughter Wendi who will measure the bathroom door and take photos of the bathroom, which she will send to patient's phone. Wendi is concerned that a wheelchair will not fit through the door and is also concerned about getting around the bathroom with his weightbearing status. Wendi is working on having a ramp built, but also inquired about where to obtain a temporary ramp. CLEMENT advised that [facility] has temporary ramps and Wendi stated she was going to call them to determine if it was something that would fit their house.
[2021-08-20 16:08] VITALS: BP 130/57; PULSE 90; TEMP 97.8
--- NOTE | 2021-08-20 18:49 | NUR ---
RECEIVED CHANGE OF SHIFT REPORT FROM DAY SHIFT RN.
[2021-08-21 04:44] VITALS: BP 149/61; PULSE 88; TEMP 98.5
--- NOTE | 2021-08-21 07:01 | NUR ---
CHANGE OF SHIFT REPORT GIVEN TO DAY SHIFT RNYAMILE.
--- NOTE | 2021-08-21 11:04 | NUR ---
PT UP WITH THERAPY FOR DAILY PROTOCOLS. ATE 100% OF BREAKFAST. USING URINAL TO VOID. CALLING WITH NEEDS APPROPRIATELY.
--- NOTE | 2021-08-21 13:57 | NUR ---
Admission QIM scores were reviewed by the team. Code of 2 chosen for lower body dressing was determined by team discussion to be the most usual performance for this patient during the assessment period. Code of 2 chosen for putting on/taking off footwear was determined by team discussion to be the most usual performance for this patient during the assessment period. Code of 1 for chair/bed to chair transfers was determined by team discussion to be the most usual performance for this patient during the assessment period.--Oumou Caraballo, PD
[2021-08-21 16:39] VITALS: BP 125/68; PULSE 91; TEMP 98
--- NOTE | 2021-08-21 19:00 | NUR ---
RECEIVED CHANGE OF SHIFT REPORT FROM DAY SHIFT RN. CALL LIGHT WITHIN REACH, BED ALARM ON WHEN IN BED.
[2021-08-22 04:42] VITALS: BP 133/59; PULSE 72; TEMP 97.2
--- NOTE | 2021-08-22 07:13 | NUR ---
Report received from FRANCISCO Ramon. Patient is resting comfortably in bed and denies pain at this time. Patient also reported the heel of his right foot is no longer hurting. Call light and bedside table are within reach. Will continue to monitor patient throughout shift.
--- NOTE | 2021-08-22 07:16 | NUR ---
CHANGE OF SHIFT REPORT GIVEN TO DAY SHIFT LEDA SINGH.
[2021-08-22 16:51] VITALS: BP 122/68; PULSE 90; TEMP 97.4
--- NOTE | 2021-08-22 21:01 | NUR ---
PT RESTING IN BED . HAD BEEN UP IN WC. RT HEEL ALITTLE PAINFUL. LOOSENED CAM BOOT. RT HEEL INTACT/ NO REDNESS. ALLOWED CAM BOOT TO STAY OPEN FOR ALITTLE BIT TO AIR, REMINDED PT NOT TO HAVE BOTTOM OF CAM BOOT RESTING ON FOOT BOARD OF BED WHICH CREATES PRESSURE. PT ABLE TO MOVE SELF UP IN BED.CALL LIGHT IN REACH. BED ALARM SET.
[2021-08-23 04:02] VITALS: BP 128/55; PULSE 62; TEMP 98
--- NOTE | 2021-08-23 14:49 | NUR ---
Hotel General Manager provided copy of team conference notes to patient and advised that the team would re-evaluate on Friday to determine discharge planning, home vs SNF. Previously, patient's daughter had advised CLEMENT that she thought patient may need additional time at [facility] SNF prior to returning home. Patient verbalized understanding. CLEMENT contacted patient's daughter, Wendi to provide update. CLEMENT advised she would fax clinical updates to [facility] so they can follow along in case SNF is needed. CLEMENT also scheduled patient-family conference for Friday at 1300. Wendi will contact CLEMENT if this needs to be changed. CLEMENT contacted Katarzyna at [facility] and faxed referral. CLEMENT explained that at this time, discharge plan was still undecided.
[2021-08-23 16:50] VITALS: BP 124/56; PULSE 80; TEMP 97.3
--- NOTE | 2021-08-23 19:47 | NUR ---
PT SITTING UP IN WC WATCHING FOOTBALL ON TV. NO NEEDS AT THIA TIME.
--- NOTE | 2021-08-23 22:55 | NUR ---
PT RELATES RLE AND RT HEEL PAINFUL TONIGHT. SEE MAR FOR PAIN MED GIVEN. PT CONCERNED FOR CONSTIPATION FROM PAIN MED. PT TAKING MIRALAX AND COLACE.
[2021-08-24 05:38] VITALS: BP 114/48; PULSE 60; TEMP 98
--- NOTE | 2021-08-24 16:23 | NUR ---
Twist Maker received a message from Shantal, Twist Maker at [facility] who advised they are going to decline referral for patient. Shantal advised they are at capacity at this time and do not feel they can meet patient's needs. Shantal also stated they have a history with patient and that also contributed to their denial. SW updated Oumou, THAI Director.
--- NOTE | 2021-08-24 16:34 | NUR ---
Nail Making Machine Tender contacted patient's daughter Wendi and confirmed family meeting on Friday at 1300. SW advised Wendi that [facility] has declined. Wendi stated patient would probably want to go to [place] but she will discuss options with patient over the weekend. Wendi reported she contacted [facility] and they do not have ramps at this time. Wendi is currently looking into other options, however she feels patient may need SNF upon discharge from [facility].
[2021-08-24 18:28] VITALS: BP 147/53; PULSE 73; TEMP 98.1
[2021-08-25 06:19] VITALS: BP 136/59; PULSE 73; TEMP 97.6
[2021-08-25 17:15] VITALS: BP 170/67; PULSE 89; TEMP 97.6
--- NOTE | 2021-08-25 23:00 | NUR ---
PT WAS UPSET WITH CAMPAIGN COORDINATOR, STATING SHE WAS CROSS WITH HIM. CAMPAIGN COORDINATOR STATED HE TRIED DUMPING OUT HIS URINAL ON THE FLOOR AND SHE ASKED HIM NOT TO DO THAT.
--- NOTE | 2021-08-26 04:34 | NUR ---
PT RESTING QUIETLY/SLEEPING MOST OF THE NIGHT. PAIN TONIGHT CONTROLLED WITH CURRENT MED REGIMEN. DRESSING TO RLE CD&I.
[2021-08-26 06:08] VITALS: BP 153/55; PULSE 85; TEMP 97.5
--- NOTE | 2021-08-26 06:58 | NUR ---
shift report received from FRANCISCO Barnett
--- NOTE | 2021-08-26 07:35 | NUR ---
awake sitting up and eating breakfast, am meds given, denies other needs at this time
--- NOTE | 2021-08-26 09:56 | NUR ---
awakened and full assessment completed, see intervention for further info, requesting to continue to sleep for a while
--- NOTE | 2021-08-26 10:15 | NUR ---
SOCIAL HUMAN SERVICES ASSISTANTS in and assisted him up and into WC for am hygiene, assisted him with changing his clothes and then to sink to brush his teeth and shave independently
--- NOTE | 2021-08-26 10:58 | NUR ---
remains up in WC looking at his phone
--- NOTE | 2021-08-26 11:10 | NUR ---
out to saini in and looped around nurses stations, move himself in WC most of the way and then nurse assisted, remaining up in WC
--- NOTE | 2021-08-26 12:24 | NUR ---
up in WC eating lunch
--- NOTE | 2021-08-26 13:00 | NUR ---
assisted into bathroom and voided but unable to have bowel movement, out of bathroom and into recliner
[2021-08-26 16:14] VITALS: BP 117/48; PULSE 68; TEMP 97.4
--- NOTE | 2021-08-26 16:17 | NUR ---
remains up in recliner talking on phone
--- NOTE | 2021-08-26 18:45 | NUR ---
shift report given to FRANCISCO Barnett
[2021-08-26 23:52] VITALS: BP 147/52; PULSE 71; TEMP 97.5
--- NOTE | 2021-08-27 05:30 | NUR ---
PT IN BED. ASSIST OF 1-2 FRO TRANSFERS. KEEGAN TO [facility] CD&I. CAM BOOT ON.
--- NOTE | 2021-08-27 08:32 | NUR ---
Pt working with PT at this time
--- NOTE | 2021-08-27 09:00 | NUR ---
Pt back from therapy. He had complained to therapy that he had not gotten his medication prior to therapy. I appologized when I entered with his medications as this time, he did not have much to say. Morning medications given. Pt has no complaints of pain and denies any other needs at this time. He is sitting up in the wheelchair, chair alarm on. Call light within reach
--- NOTE | 2021-08-27 10:30 | NUR ---
Called ortho to discuss pt's giovanny. Talked with Dr Jeremias Grossman's nurse. Gave pt information and my number to for a call back
--- NOTE | 2021-08-27 11:20 | NUR ---
Jeevan, nurse at ortho office called and asked questions regarding pt. Gave him an update, stated he would return my call in regards to incision care/giovanny.
--- NOTE | 2021-08-27 14:37 | NUR ---
SW attended the patient/family meeting. The patient's daughter, Wendi, was on speaker phone. Also present was IPR Director, the Academic Tutor, PT, OT, and ST. IPR Director started by explaining the purpose of the meeting. The Academic Tutor provided the daughter with a medical update. Therapy then discussed the patient's progress so far and how the team recommends home with 24/7 supervision vs SNF. The patient reports that he would prefer to just go to SNF. He would prefer [facility]. SW informed him and the daughter how they declined. The patient's daughter requested that we try back with them. If they cannot take, the patient and his daughter are interested in [facility] or [facility]. Tentative discharge on Friday or . The team answered all questions. CLEMENT contacted and faxed a referral to both facilities. Awaiting screens.
--- NOTE | 2021-08-27 16:27 | NUR ---
Pt has done well throughout the day. No pain complaints. He continues to ask about the giovanny, informed in the ortho is aware and that I would update him as soon as I heard from them. Dressing was changed on the , remains CDI, no drainage noted.
[2021-08-27 16:36] VITALS: BP 152/72; PULSE 86; TEMP 97.9
--- NOTE | 2021-08-27 18:50 | NUR ---
Pt daughter recently here. Pt was stating that he was not going to leave here until Friday. He was not happy with hearing that the plan was for discharge on Friday or . Daughter Wendi mentioned community health in [place] as a possible place of interest. Will report to social work faculty member tomorrow regarding this. No other needs/issues at this time
[2021-08-28 05:27] VITALS: BP 131/65; PULSE 67; TEMP 97.4
--- NOTE | 2021-08-28 07:07 | NUR ---
Report received from FRANCISCO Gaspar. Patient is sleeping in bed. Call light and bedside table are within reach. Will continue to monitor patient throughout shift.
--- NOTE | 2021-08-28 07:20 | NUR ---
Dr. Mcdowell came by to see patient and informed this nurse that giovanny can come out and leave RETAIL ATTENDANT. He also patient he will do his Xrays at the office during his follow up appointment
--- NOTE | 2021-08-28 08:58 | NUR ---
Linda, at [facility], reports that they are able to accept the patient. Katarzyna, at [facility], reports that they are full and not able to take the patient at this time.
[2021-08-28] MEDS ORDERED: NORCO 325 MG-51 TAB PO ×2 (09:59)
--- NOTE | 2021-08-28 13:38 | NUR ---
The patient's daughter, Wendi, contacted CLEMENT. CLEMENT updated her on the referrals. She reports that after some more thinking, her and the patient are agreeable with going to [facility]. CLEMENT informed her that the team would be looking at a discharge for tomorrow then. Wendi verbalized undertanding and was okay with this. CLEMENT met with the patient and updated him on the above. The patient is in agreement to the plan. CLEMENT presented and read the IM form outloud to him. The patient verbalized understanding and signed the form. He declined a copy. CLEMENT updated Linda at [facility]. Linda reports that they are good with taking the patient tomorrow and that she will contact CLEMENT back with a transport time.
[2021-08-28 16:15] VITALS: BP 145/80; PULSE 90; TEMP 97.3
--- NOTE | 2021-08-28 16:30 | NUR ---
Linda, at [facility], reports that transport has been set up for noon tomorrow. SW notified the patient's RN and the patient's daughter of the time.
--- NOTE | 2021-08-28 23:04 | NUR ---
Patient assessed around 1999. Alert and oriented, and able to make needs known. Complained of chronic back pain and mild pain to RLE. Took scheduled medications per orders. Pioneer removed to surgical site on lateral side of RLE at shift change by day shift nurse Site without redness, warmth, and drainage.. 3+ edema BLE. Cam boot to RLE. Voices no questions, needs, or concerns at this time. In bed with call light within reach.
[2021-08-29 05:31] VITALS: BP 151/58; PULSE 63; TEMP 97.4
--- NOTE | 2021-08-29 05:33 | NUR ---
Patient has been resting in bed with call light within reach. Has been using urinal independently throughout the night. Voices no questions, needs, or concerns at this time.
--- NOTE | 2021-08-29 07:33 | NUR ---
PT ASSESSED. NO COMPLAINTS OF PAIN OR DYSPNEA. PT AWAKE AND EATING BREAKFAST. NO SIGNS OR SYMPTOMS OF DISTRESS. CALL LIGHT WITHIN REACH
--- NOTE | 2021-08-29 09:20 | NUR ---
The patient is to discharge today, 08/29, to [facility] for a skilled stay. Transportation was scheduled at 1200, via [place]. SW informed the patient's daughter and RN of the time. No additional needs at this time.
[2021-08-29] MEDS ORDERED: BIOTENE MOIST44.3 ML PO (10:10)
[2021-08-29] MEDS ORDERED: NORCO 325 MG-51 TAB PO (10:11)
--- NOTE | 2021-08-29 12:58 | NUR ---
PT SENT TO [facility]. ATTEMTPED TO C ALL REPORT BUT NO ANSWER TO PHONE.
--- NOTE | 2021-09-03 14:07 | NUR ---
Discharge QIM scores were reviewed by the team. Code of 4 chosen for toilet hygiene was determined by team discussion to be the most usual performance for this patient during the assessment period. Code of 4 chosen for shower/bathe self was determined by team discussion to be the most usual performance before interventions for this patient during the assessment period. Code of 3 chosen for putting on/taking off footwear was determined by team discussion to be the most usual performance for this patient during the assessment period. Code of 6 chosen for lying to sitting on side of bed was determined by team discussion to be the most usual performance for this patient during the assessment period. Code of 4 for sit to stand was determined by team discussion to be the most usual performance for this patient during the assessment period.--Oumou Caraballo, PD
== END 2021-08-29 12:59 | DRG 560 ==
LOC: COL.RAD 11:03 → EDSTATUS 11:04
PROVIDERS: ADMIT Physical Medicine & Rehabilitation Sports Medicine
DX: S82.291D Other fracture of shaft of right tibia, subsequent encounter for closed fracture with routine healing (principal); Z68.42 Body mass index [BMI] 45.0-49.9, adult; M97.11XD Periprosthetic fracture around internal prosthetic right knee joint, subsequent encounter; I25.10 Atherosclerotic heart disease of native coronary artery without angina pectoris; R26.89 Other abnormalities of gait and mobility; E78.5 Hyperlipidemia, unspecified; I25.2 Old myocardial infarction; G47.33 Obstructive sleep apnea (adult) (pediatric); E11.40 Type 2 diabetes mellitus with diabetic neuropathy, unspecified; N18.9 Chronic kidney disease, unspecified; I12.9 Hypertensive chronic kidney disease with stage 1 through stage 4 chronic kidney disease, or unspecified chronic kidney disease; F32.A Depression, unspecified; E11.22 Type 2 diabetes mellitus with diabetic chronic kidney disease; M48.061 Spinal stenosis, lumbar region without neurogenic claudication; E66.01 Morbid (severe) obesity due to excess calories; R50.9 Fever, unspecified; Z96.653 Presence of artificial knee joint, bilateral; Z73.6 Limitation of activities due to disability; Z95.5 Presence of coronary angioplasty implant and graft; Z90.79 Acquired absence of other genital organ(s); Z88.8 Allergy status to other drugs, medicaments and biological substances; Z79.899 Other long term (current) drug therapy; Z95.1 Presence of aortocoronary bypass graft; Z79.82 Long term (current) use of aspirin; Z79.891 Long term (current) use of opiate analgesic; Z86.79 Personal history of other diseases of the circulatory system; Z79.84 Long term (current) use of oral hypoglycemic drugs; W19.XXXD Unspecified fall, subsequent encounter; Y92.009 Unspecified place in unspecified non-institutional (private) residence as the place of occurrence of the external cause; K59.00 Constipation, unspecified; R68.2 Dry mouth, unspecified
CPT/HCPCS: 99222; 99232-AI

== ENCOUNTER 2022-07-11 14:02 | Emergency (ER) | payer MEDICARE, OTHER ==
[~2022-07-11] VITALS: Ht 182.9 cm; Wt 134.5 kg
[~2022-07-11 14:02] MED LIST changes: +ASPIRIN 81M81 MG/TA2 PO; +BIOTENE MOIST44.3 ML PO; +COREG12.5 MG PO; +LIPITOR 40MG TA40 MG PO; +MIRALAX PA17 GM/Dose PO; +PLAVIX 75MG TAB75 MG PO; +RANEXA 500MG T500 MG PO; +TRULICITY1.5 MG/0.5 SQ
[2022-07-11 14:51] LABS: HEMATOCRIT 48.2 % (42.0-52.0); HEMOGLOBIN 14.7 g/dl (13.5-18.0); MEAN CELL VOLUME 92 fl (80.0-100.0); MEAN CORPUSCULAR HEMOGLOBIN 28 pg (27-31); MEAN CORPUSCULAR HGB CONC 31 g/dl (33.0-37.0); MEAN PLATELET VOLUME 9.9 fl (7.4-10.4); PLATELET COUNT 167 K/mm3 (130-400); RED BLOOD COUNT 5.25 M/mm3 (4.20-5.60); REDCELL DISTRIBUTION WIDTH-CV 14.9 % (11.5-14.5)
[2022-07-11 15:08] LABS: ALANINE AMINOTRANSFERASE 23 U/L (0-55); ALBUMIN 3.1 gm/dL (3.4-4.8); ALKALINE PHOSPHATASE 126 U/L (40-150); ANION GAP 8 mmol/L (7-16); AST,SGOT 18 U/L (5-34); BILIRUBIN,TOTAL 0.5 mg/dL (0.2-1.2); BLOOD UREA NITROGEN 25 mg/dL (8-26); CALCIUM 9.1 mg/dL (8.4-10.2); CARBON DIOXIDE 29 mmol/L (23-31); CHLORIDE 103 mmol/L (98-107); GLUCOSE 228 mg/dL (70-99); POTASSIUM 4.6 mmol/L (3.5-4.5); SODIUM 140 mmol/L (136-145)
[2022-07-11 15:18] LABS: TROPONIN-I < 0.010 ng/mL (0.00-0.033)
[2022-07-11 15:32] LABS: BAND 1 % (0-10); HYPOCHROMIA 1+; LYMPHOCYTE 9 % (20.0-51.0); NEUTROPHILS 83 % (42.0-75.2)
[2022-07-11 18:00] VITALS: BP 132/70; PULSE 88; TEMP 97.8
== END 2022-07-11 18:12 | disposition home or self-care (01) ==
LOC: COL.ER 14:02
PROVIDERS: Physician Assistant
DX: G47.33 Obstructive sleep apnea (adult) (pediatric) (principal); E66.01 Morbid (severe) obesity due to excess calories; R53.81 Other malaise; Z20.822 Contact with and (suspected) exposure to COVID-19
CPT/HCPCS: J7030; Q9967

== ENCOUNTER 2022-12-16 07:54 | Outpatient (RCR) | payer MEDICARE, OTHER ==
[2022-12-17] MEDS ORDERED: ZOCOR 20MG20 MG PO (10:40)
[2022-12-17] MEDS ORDERED: MELATONIN1 MG PO (10:40)
[2022-12-17] MEDS ORDERED: NEURONTIN600 MG/TAB PO (14:05)
[2022-12-18] MEDS ORDERED: MIRALAX PA17 GM/Dose PO (12:33)
[2022-12-18] MEDS ORDERED: TRULICITY4.5 MG/0.5 SQ (12:33)
[2022-12-19] MEDS ORDERED: AMOXICILLIN 8751 TAB PO (14:27)
[2022-12-19] MEDS ORDERED: RT Albuterol HFA MDI IH (14:32)
[2022-12-19] MEDS ORDERED: DESYREL 50MG50 MG PO (14:35)
[2022-12-19] MEDS ORDERED: OXYGEN NASAL.CANN (14:39)
== END 2023-01-05 | disposition home or self-care (01) ==
LOC: MKS.ESL.PT
DX: M48.062 Spinal stenosis, lumbar region with neurogenic claudication (principal); R29.898 Other symptoms and signs involving the musculoskeletal system; R26.2 Difficulty in walking, not elsewhere classified; G62.9 Polyneuropathy, unspecified

== ENCOUNTER 2023-09-22 19:13 | Emergency (ER) | payer MEDICARE, OTHER ==
[~2023-09-22] VITALS: Ht 177.8 cm; Wt 131.8 kg
[~2023-09-22 19:13] MED LIST changes: +AMOXICILLIN 8751 TAB PO; +DESYREL 50MG50 MG PO; +MELATONIN1 MG PO; +OXYGEN NASAL.CANN; +RT Albuterol HFA MDI IH; +TRULICITY4.5 MG/0.5 SQ
[2023-09-22 19:16] VITALS: TEMP 97.2
[2023-09-22 20:29] LABS: HEMATOCRIT 43.1 % (42.0-52.0); HEMOGLOBIN 13.4 g/dl (13.5-18.0); MEAN CELL VOLUME 90 fl (80.0-100.0); MEAN CORPUSCULAR HEMOGLOBIN 28 pg (27-31); MEAN CORPUSCULAR HGB CONC 31 g/dl (33.0-37.0); MEAN PLATELET VOLUME 10.3 fl (7.4-10.4); PLATELET COUNT 144 K/mm3 (130-400); RED BLOOD COUNT 4.78 M/mm3 (4.20-5.60); REDCELL DISTRIBUTION WIDTH-CV 15.2 % (11.5-14.5)
[2023-09-22 20:40] LABS: ALBUMIN 3.3 gm/dL (3.4-4.8); BILIRUBIN,TOTAL 0.4 mg/dL (0.2-1.2); CALCIUM 8.9 mg/dL (8.4-10.2); CREATININE, serum 1.4 mg/dL (0.72-1.25); POTASSIUM 4.6 mmol/L (3.5-4.5); TOTAL PROTEIN 6.3 gm/dL (6.2-8.1)
[2023-09-22 20:51] LABS: ANISOCYTOSIS 1+; BAND 2 % (0-10); EOSINOPHIL 5 % (0-4); HYPOCHROMIA 1+; LYMPHOCYTE 19 % (20.0-51.0); NEUTROPHILS 67 % (42.0-75.2); PLATELET ESTIMATE NORMAL (NORMAL)
[2023-09-22 21:37] VITALS: BP 150/76; PULSE 64
== END 2023-09-22 21:38 | disposition home or self-care (01) ==
LOC: COL.ER 19:13
PROVIDERS: Personal Emergency Response Attendant
DX: S02.2XXA Fracture of nasal bones, initial encounter for closed fracture (principal); S01.21XA Laceration without foreign body of nose, initial encounter; Z23 Encounter for immunization; W05.0XXA Fall from non-moving wheelchair, initial encounter

== ENCOUNTER 2024-01-29 09:45 | Outpatient (RCR) | payer MEDICARE, OTHER | END 2024-02-06 | disposition home or self-care (01) | LOC: WSPT | DX: R53.1 Weakness (principal) ==